=== PATIENT | female | born 1950 | race Caucasian/White ===

== ENCOUNTER 2020-08-06 16:08 | Inpatient (IN) | payer MEDICARE, OTHER ==
[~2020-08-06] VITALS: Ht 154.9 cm; Wt 85.1 kg
--- NOTE | 2020-08-06 17:04 | RAD ---
EXAM: CT Head without IV contrast CLINICAL HISTORY: Altered mental status COMPARISON: None. TECHNIQUE: Routine CT of the head without contrast. PQRS compliance statement - One or more of the following individualized dose reduction techniques were utilized for this study: 1. Automated exposure control 2. Adjustment of the mA and/or kV according to patient size 3. Use of iterative reconstruction technique FINDINGS: There is no evidence of hemorrhage, mass or extra-axial fluid collection. García-white differentiation is maintained with no evidence of edema. Subcortical, periventricular, deep and pontine white matter hypoattenuation likely changes of chronic small vessel disease. There is no mass effect or shift of the intracranial structures. The ventricles, basilar cisterns and cortical sulci are normal in size and configuration for the patients stated age. The cerebellum and brainstem are unremarkable. The calvarium demonstrates no evidence of fracture or focal lesion. Mastoid air cells are clear. Partial opacification of the sphenoid sinuses, likely sinusitis. Otherwise, the visualized paranasal sinuses are clear. The visualized portions of the orbits are normal. Ectatic appearance of the basilar artery, similar in density to the MCA. Atherosclerotic calcifications of the intracranial internal carotid and vertebral arteries is seen. IMPRESSION: 1. No evidence for acute intracranial process 2. White matter changes likely chronic small vessel disease. 3. 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 4. Sphenoid sinus disease. Electronically signed by: Rogerio Rosado MD (08/06/2020 5:02 PM) [facility]LS[facility]
[2020-08-06] MEDS ORDERED: LORazepam 0.5 MG TABLET ONE (17:07)
--- NOTE | 2020-08-06 17:31 | RAD ---
CHEST AP ONLY History: Reason: AMS / Spl. Instructions: / History: Comparison: None. Findings: No consolidation or pleural effusion. Normal heart size. No pneumothorax. Impression: 1. No acute cardiopulmonary process. Electronically signed by: Saul Del Real DO (08/06/2020 5:28 PM) [facility]
--- NOTE | 2020-08-06 17:45 | PHYS DOC ---
Past Medical History Past Medical History: GERD, Hypertension Additional Past Medical Histor: HYPOGLYCEMIA (HERMINIA VIDALES MD) Past Surgical History: Cholecystectomy Additional Past Surgical Histo: COLON RESECTION,LEFT FOOT (HERMINIA VIDALES MD) Smoking Status: Never Smoker Alcohol Use: None (HERMINIA VIDALES MD) General Adult EDM: Chief Complaint: SLURRED SPEECH HPI: HPI: Patient is 70-year-old female who presents to the emergency room after having an episode of transient aphasia. Her states that she started having shaking which she sometimes gets when she has a low glucose. He then states that she became very confused. He states that he asked her what they were doing there and the name of their dogs as well as his name and she was unable to answe r any of this questions. He states that it appeared that she was having a hard time getting her words out. He states that her pupils were constricted and that she was very listless. He states that he was able to get her some food and soda and her mental status slowly improved on their way here to the hospital. He states this is never happened previously. She states she felt normal prior to this episode. She is still feeling shaky but otherwise feels back to normal. (HERMINIA VIDALES MD) Review of Systems: Review of Systems: General: Denies fever, chills, sweats, fatigue Eyes: Denies drainage, blurred vision, eye redness HENT: Denies rhinorrhea, sore throat, earache Respiratory: Denies cough, shortness of breath, wheezing Cardiac: Denies edema, palpitations, chest pain GI: Denies abdominal pain, Nausea, vomiting MSK: Denies back pain, neck pain Skin: Denies rash, jaundice Neuro: Denies headache, dizziness reports aphasia Psychiatric: Denies SI/HI (HERMINIA VIDALES MD) Heart Score: Risk Factors: Risk Factors: DM, Current or recent (<one month) smoker, HTN, HLP, family history of CAD, obesity. Risk Scores: Score 0 - 3: 2.5% MACE over next 6 weeks - Discharge Home Score 4 - 6: 20.3% MACE over next 6 weeks - Admit for Clinical Observation Score 7 - 10: 72.7% MACE over next 6 weeks - Early Invasive Strategies (HERMINIA VIDALES MD) Current Medications: Current Medications Medications (Trade) Dose Ordered Sig/Gretchen Start Time Stop Time Status Last Admin Dose Admin Lorazepam (Ativan) 0.5 mg STK-MED ONCE 08/06/20 17:07 08/06/20 17:07 DC (HERMINIA VIDALES MD) Allergies: Allergies: Allergies Coded Allergies Type Severity Reaction Last Updated Verified No Known Drug Allergies 08/06/20 No (HERMINIA VIDALES MD) Physical Exam: PE: General: Awake, alert, NAD. Well Nourished, well hydrated. Cooperative HEENT: Atraumatic, EOMI, PERRL, airway patent, moist oral mucosa Neck: Supple, trachea midline Respiratory: CTA bilaterally, normal effort, no wheezing/crackles CV: RRR, no murmur, cap refill <2 GI: Soft, nondistended, nontender, no masses MSK: No obvious deformities Skin: Warm, dry, intact Neuro: A&O x3, speech NL, 5/5 strength in BUE/BLE distally and proximally, CN 2- 12 intact, cerebellar testing normal Psych: Normal affect, normal mood, not suicidal or homicidal (HERMINIA VIDALES MD) PE: Constitutional: Well developed, well nourished, no acute distress, non-toxic appearance HENT: Normocephalic, atraumatic Eyes: PERRL, EOMI, conjunctiva normal, no discharge Neck: Normal range of motion, no tenderness, supple Lungs & Thorax: No respiratory distress, equal chest rise and fall Abdomen: Soft, no tenderness Skin: Warm, dry, no erythema, no rash Extremities: No tenderness, ROM intact, no edema Neurologic: Alert and oriented X 3, normal motor function, normal sensory function, no focal deficits noted Psychologic: Affect normal, judgment normal (DIAMOND MARTINEZ DO) Current Patient Data: Labs: Laboratory Tests Test 08/06/20 16:30 Glucose (Fingerstick) 121 mg/dL (70-99) H Vital Signs: Vital Signs Date Time Temp Pulse Resp B/P (MAP) Pulse Ox O2 Delivery O2 Flow Rate FiO2 08/06/20 16:32 97.9 106 20 159/100 (119) 94 Room Air 97.9 (HERMINIA VIDALES MD) EKG: EKG: [] (HERMINIA VIDALES MD) Radiology/Procedures: Radiology/Procedures: [] (HERMINIA VIDALES MD) Radiology/Procedures: PROCEDURE: CT HEAD WO CONTRAST EXAM: CT Head without IV contrast CLINICAL HISTORY: Altered mental status COMPARISON: None. TECHNIQUE: Routine CT of the head without contrast. PQRS compliance statement - One or more of the following individualized dose reduction techniques were utilized for this study: 1. Automated exposure control 2. Adjustment of the mA and/or kV according to patient size 3. Use of iterative reconstruction technique FINDINGS: There is no evidence of hemorrhage, mass or extra-axial fluid collection. García-white differentiation is maintained with no evidence of edema. Subcortical, periventricular, deep and pontine white matter hypoattenuation likely changes of chronic small vessel disease. There is no mass effect or shift of the intracranial structures. The ventricles, basilar cisterns and cortical sulci are normal in size and configuration for the patients stated age. The cerebellum and brainstem are unremarkable. The calvarium demonstrates no evidence of fracture or focal lesion. Mastoid air cells are clear. Partial opacification of the sphenoid sinuses, likely sinusitis. Otherwise, the visualized paranasal sinuses are clear. The visualized portions of the orbits are normal. Ectatic appearance of the basilar artery, similar in density to the MCA. Atherosclerotic calcifications of the intracranial internal carotid and vertebral arteries is seen. IMPRESSION: 1. No evidence for acute intracranial process 2. White matter changes likely chronic small vessel disease. 3. 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 4. Sphenoid sinus disease. Electronically signed by: Rogerio Rosado MD (08/06/2020 5:02 PM) [facility] CHEST AP ONLY History: Reason: AMS / Spl. Instructions: / History: Comparison: None. Findings: No consolidation or pleural effusion. Normal heart size. No pneumothorax. Impression: 1. No acute cardiopulmonary process. Electronically signed by: Saul Del Real DO (08/06/2020 5:28 PM) [facility] (DIAMOND MARTINEZ DO) Course & Med Decision Making: Course & Med Decision Making Pertinent Labs and Imaging studies reviewed. (See chart for details) Patient is a 70-year-old female who presents to the emergency room after having an episode of expressive aphasia. It is possible that this could have been due to hypoglycemia as she is a history of this. This also could be related to a TIA. Work-up will be ordered including CBC, BMP, troponin, EKG, chest x-ray, CT head. (HERMINIA VIDALES MD) Course & Med Decision Making 1800-signout received from Dr. Vidales for patient with concern for possible TIA. NIHSS upon arrival reportedly 0. CT imaging without acute process. Patient pending laboratory data. Labs reviewed. Patient seen and evaluated by myself. NIHSS continues to be 0. Neuroprotective aspirin provided. Blood pressure addressed. Patient requiring admission for further evaluation and treatment. Discussed with Dr. Lemus (hospitalist) who is in agreement with admission. Discussed findings and plan with patient and family, who acknowledge understanding and agreement. (DIAMOND MARTINEZ DO) Dragon Disclaimer: Dragon Disclaimer: This electronic medical record was generated, in whole or in part, using a voice recognition dictation system. (HERMINIA VIDALES MD) Departure Departure Impression: Primary Impression: TIA (transient ischemic attack) Additional Impression: Expressive aphasia Disposition: ADMITTED INPATIENT Admitting Physician: CEDRICK Dyer) (DIAMOND MARTINEZ DO) Condition: STABLE Referrals: UNKNOWN PCP NAME (PCP) Scripts Atorvastatin Calcium (ATORVASTATIN CALCIUM) 40 Mg Tablet 80 MG PO QHS for TIA, #30 TAB 2 Refills Prov: MARILEE RICH MD 08/07/20 Aspirin (ASPIRIN EC) 325 Mg Tablet. 325 MG PO DAILYWBKFT for TIA, #30 TAB.SR 2 Refills Prov: MARILEE RICH MD 08/07/20 Justicifation of Admission Dx: Justifications for Admission: Justification of Admission Dx: N/A (HERMINIA VIDALES MD) Justification of Admission Dx: Yes Comments: TIA (DIAMOND MARTINEZ DO) NIHSS - ED NIH Stroke Scale: NIH Stroke Scale Response (Comments) Value Level of Consciousness: 0 Alert/Responsive 0 LOC Questions: 0 Answers both correctly 0 LOC Commands: 0 Performs both tasks 0 Best Gaze: 0 Normal 0 Visual: 0 No visual loss 0 Facial Palsy: 0 Normal, symmetrical 0 Motor - Left Arm 0 No drift 0 Motor - Right Arm 0 No drift 0 Motor - Left Leg 0 No drift 0 Motor: Right Leg 0 No drift 0 Limb Ataxia: 0 Absent 0 Sensory: 0 No loss 0 Best Language: 0 Normal 0 Dysathria: 0 Normal 0 Extinction and Inattention: 0 Normal 0 Total 0 HERMINIA VIDALES MD Aug 06, 2020 17:45 DIAMOND MARTINEZ DO Aug 06, 2020 21:10
[2020-08-06 17:46] LABS: BASO # 0.1 x10^3/uL (0.0-0.2); BASO % 1 % (0-3); EOS # 0.2 x10^3/uL (0.0-0.7); EOS % 3 % (0-3); HEMATOCRIT 41.8 % (36.0-47.0); HEMOGLOBIN 13.9 g/dL (12.0-15.5); LYMPH # 1.5 x10^3/uL (1.0-4.8); LYMPH % 24 % (24-48); MEAN CORPUSCULAR HEMOGLOBIN 31 pg (25-35); MEAN CORPUSCULAR HGB CONC 33 g/dL (31-37); MEAN CORPUSCULAR VOLUME 93 fL (79-100); MONO # 0.6 x10^3/uL (0.0-1.1); MONO % 10 % (0-9); NEUT # 3.8 x10^3/uL (1.8-7.7); NEUT % 63 % (31-73); PLATELET COUNT 233 x10^3/uL (140-400); RED CELL DISTRIBUTION WIDTH 13.4 % (11.5-14.5); WHITE BLOOD COUNT 6.1 x10^3/uL (4.0-11.0)
[2020-08-06 18:19] LABS: CALCIUM 9.1 mg/dL (8.5-10.1); CREATININE 0.9 mg/dL (0.6-1.0); GFR 61.5; POTASSIUM 4.2 mmol/L (3.5-5.1)
[2020-08-06 18:25] LABS: ALBUMIN 3.7 g/dL (3.4-5.0); C-REACTIVE PROTEIN 1.3 mg/L (0-3.3); TOTAL BILIRUBIN 0.3 mg/dL (0.2-1.0); TOTAL PROTEIN 7.3 g/dL (6.4-8.2)
[2020-08-06] MEDS ORDERED: ASPIRIN 325 MG TABLET PO ONE (19:45)
[2020-08-06] MEDS ORDERED: LABETALOL 20 MG/4 ML DISP.SYRIN. IVP ONE (19:45)
[2020-08-06] MEDS ORDERED: ONDANSETRON PF 4 MG/2 ML VIAL. IV PRN ×2 (21:15→21:45)
[2020-08-06] MEDS ORDERED: ACETAMINOPHEN 325 MG TABLET. PO PRN (21:15)
[2020-08-06] MEDS ORDERED: LABETALOL 20 MG/4 ML DISP.SYRIN. IVP PRN (21:45)
[2020-08-06] MEDS ORDERED: ASPIRIN RECTAL 300 MG SUPP. PR PRN (21:45)
[2020-08-06] MEDS ORDERED: DOCUSATE SODIUM 100 MG CAPSULE. PO PRN (21:45)
[2020-08-06] MEDS ORDERED: BISACODYL 10 MG SUPP.RECT. PR PRN (21:45)
[2020-08-06] MEDS ORDERED: ACETAMINOPHEN 650 MG SUPP.RECT. PR PRN (21:45)
[2020-08-06] MEDS: HEPARIN for SUB-Q USE 5,000 UNIT/ML VIAL. SQ SCH (21:49)
[2020-08-06] MEDS ORDERED: ATORVASTATIN CALCIUM 40 MG TABLET. PO SCH (22:00)
[2020-08-06] MEDS ORDERED: FAMOTIDINE 20 MG TABLET. PO SCH (22:00)
[2020-08-06 23:30] VITALS: BP 124/86
[2020-08-07] MEDS ORDERED: LISI-334 PO (00:05)
[2020-08-07] MEDS ORDERED: MELO15TA23 PO (00:05)
[2020-08-07] MEDS ORDERED: CARB1TAB20 PO (00:05)
[2020-08-07] MEDS ORDERED: ESOM20CA PO (00:05)
[2020-08-07 03:00] VITALS: BP 111/82
--- NOTE | 2020-08-07 04:15 | EKG ---
[facility] [address] [place] [address] Test Date: 2020-08-06 Test Time: 16:21:37 Pat Name: DANNA GATICA Department: Room: Gender: F Cycle Analyst: : 1950 Requested By: HERMINIA VIDALES Order Number: [id number] Reading MD: Measurements Intervals [place] Rate: 108 P: 4 NH: 152 QRS: 4 QRSD: 80 T: 0 QT: 340 QTc: 459 Interpretive Statements SINUS TACHYCARDIA LEFT ATRIAL ABNORMALITY QRS(T) CONTOUR ABNORMALITY CONSISTENT WITH INFERIOR INFARCT AGE UNDETERMINED ABNORMAL ECG RI6.02 No previous ECG available for comparison
[2020-08-07 05:36] LABS: CALCIUM 8.6 mg/dL (8.5-10.1); CREATININE 0.7 mg/dL (0.6-1.0); GFR 82.3
[2020-08-07 05:46] LABS: CHOLESTEROL/HDL RATIO 3.6
[2020-08-07 07:00] VITALS: BP 119/83
[2020-08-07] MEDS: HEPARIN for SUB-Q USE 5,000 UNIT/ML VIAL. SQ SCH ×2 (07:29→14:15)
--- NOTE | 2020-08-07 07:39 | PDOC1 ---
History and Physical Date of Admission Date of Admission DATE: 08/07/20 TIME: 07:32 Identification/Chief Complaint Chief Complaint TIA Source Source: Patient History of Present Illness History of Present Illness Patient is a 70-year-old female with past medical history of hypertension who presents to the ER for evaluation of transient aphasia that began yesterday. Patient said her symptoms lasted only a couple hours and began to resolve in route to the emergency department. She has associated confusion and hand shaking that she associates to her history of hypoglycemia. Patient denies any history of TIA or heart disease. She denies any chest pain, numbness, tingling, shortness of breath, or nausea. Past Medical History Past Medical History Hypertension, GERD, restless leg syndrome Past Surgical History Past Surgical History Cholecystectomy Family History Family History: Coronary Artery Disease Social History Smoke: No ALCOHOL: none Drugs: None Current Problem List Problem List Problems Medical Problems: (1) Expressive aphasia Status: Acute Current Medications Current Medications Current Medications Lorazepam (Ativan) 0.5 mg STK-MED ONCE .ROUTE ; Start 08/06/20 at 17:07; Stop 08/06/20 at 17:07; Status DC Aspirin (Khang Aspirin) 325 mg 1X ONCE PO Last administered on 08/06/20at 20:05; Start 08/06/20 at 19:45; Stop 08/06/20 at 19:47; Status DC Labetalol HCl (Normodyne Iv Push) 10 mg 1X ONCE IVP Last administered on 08/06/20at 20:05; Start 08/06/20 at 19:45; Stop 08/06/20 at 19:47; Status DC Ondansetron HCl (Zofran) 4 mg PRN Q8HRS PRN IV NAUSEA/VOMITING 1ST CHOICE; Start 08/06/20 at 21:15; Stop 08/06/20 at 21:37; Status DC Acetaminophen (Tylenol) 650 mg PRN Q4HRS PRN PO FEVER > 100.3'F; Start 08/06/20 at 21:15 Ondansetron HCl (Zofran) 4 mg PRN Q4HRS PRN IV NAUSEA/VOMITING 1ST CHOICE; Start 08/06/20 at 21:45 Heparin Sodium (Porcine) (Heparin Sodium) 5,000 unit Q8HRS SQ Last administered on 08/07/20at 07:29; Start 08/06/20 at 22:00 Labetalol HCl (Normodyne Iv Push) 10 mg PRN Q2HRS PRN IVP HYPERTENSION; Start 08/06/20 at 21:45 Atorvastatin Calcium (Lipitor) 80 mg QHS PO Last administered on 08/06/20at 21:47; Start 08/06/20 at 22:00 Acetaminophen (Tylenol Supp) 650 mg PRN Q4HRS PRN IA TEMP > 100.4F; Start 08/06/20 at 21:45 Docusate Sodium (Colace) 100 mg PRN DAILY PRN PO HARD STOOLS; Start 08/06/20 at 21:45 Bisacodyl (Dulcolax Supp) 10 mg PRN DAILY PRN IA CONSTIPATION; Start 08/06/20 at 21:45 Famotidine (Pepcid) 20 mg QHS PO Last administered on 08/06/20at 21:47; Start 08/06/20 at 22:00 Aspirin (Ecotrin) 325 mg DAILYWBKFT PO ; Start 08/07/20 at 08:00 Aspirin (Aspirin Rectal Supp) 300 mg PRN DAILY PRN IA IF UNABLE TO TAKE PO; Start 08/06/20 at 21:45 Active Scripts Active Reported Carbidopa-Levodopa 10-100 Tab (Carbidopa/Levodopa) 1 Each Tablet 1 Each PO HS Lisinopril 20 Mg Tablet 1 Tab PO DAILY Meloxicam 15 Mg Tablet 1 Tab PO DAILY 30 Days Nexium Capsule (Esomeprazole Magnesium) 20 Mg Capsule. 1 Cap PO DAILY Allergies Allergies: Coded Allergies: No Known Drug Allergies (Unverified , 08/06/20) ROS Review of System GENERAL: No history of weight change, weakness or fevers. SKIN: No bruising, hair changes or rashes. EYES: No blurred, double or loss of vision. NOSE AND THROAT: No history of nosebleeds, hoarseness or sore throat. HEART: Denies chest pain, denies palpitations. LUNGS: Denies cough, hemoptysis, wheezing or shortness of breath. GASTROINTESTINAL: Denies nausea, vomiting, abdominal pain. GENITOURINARY: Denies dysuria, frequency, urgency, hematuria. NEUROLOGIC: Aphasia. Denies history of numbness, tingling, or weakness. PSYCHIATRIC: Denies anxiety, denies depression. ENDOCRINE: No history of heat or cold intolerance, polyuria or polydipsia. EXTREMITIES: Denies muscle weakness, joint pain, pain on walking or stiffness. Physical Exam Physical Exam General: Alert, Oriented X3, Cooperative, No acute distress HEENT: PERRLA, EOMI Lungs: Clear to auscultation, Normal air movement Heart: RRR, no murmurs Cardiovascular: S1, S2 Abdomen: Normal bowel sounds, Soft, No tenderness Extremities: No clubbing, No cyanosis Skin: No rashes, No significant lesion Neuro: Normal speech, Normal tone, Sensation intact Psych/Mental Status: Mental status NL, Mood NL Vitals Vitals Vital Signs Date Time Temp Pulse Resp B/P (MAP) Pulse Ox O2 Delivery O2 Flow Rate FiO2 08/07/20 07:00 97.9 88 17 119/83 (95) 93 Room Air 97.9 Labs Labs Laboratory Tests Test 08/06/20 16:30 08/06/20 17:20 08/07/20 00:24 08/07/20 04:40 Glucose (Fingerstick) 121 mg/dL (70-99) White Blood Count 6.1 x10^3/uL (4.0-11.0) Red Blood Count 4.50 x10^6/uL (3.50-5.40) Hemoglobin 13.9 g/dL (12.0-15.5) Hematocrit 41.8 % (36.0-47.0) Mean Corpuscular Volume 93 fL (79-100) Mean Corpuscular Hemoglobin 31 pg (25-35) Mean Corpuscular Hemoglobin Concent 33 g/dL (31-37) Red Cell Distribution Width 13.4 % (11.5-14.5) Platelet Count 233 x10^3/uL (140-400) Neutrophils (%) (Auto) 63 % (31-73) Lymphocytes (%) (Auto) 24 % (24-48) Monocytes (%) (Auto) 10 % (0-9) Eosinophils (%) (Auto) 3 % (0-3) Basophils (%) (Auto) 1 % (0-3) Neutrophils # (Auto) 3.8 x10^3/uL (1.8-7.7) Lymphocytes # (Auto) 1.5 x10^3/uL (1.0-4.8) Monocytes # (Auto) 0.6 x10^3/uL (0.0-1.1) Eosinophils # (Auto) 0.2 x10^3/uL (0.0-0.7) Basophils # (Auto) 0.1 x10^3/uL (0.0-0.2) Sodium Level 137 mmol/L (136-145) 138 mmol/L (136-145) Potassium Level 4.2 mmol/L (3.5-5.1) 4.0 mmol/L (3.5-5.1) Chloride Level 103 mmol/L (98-107) 105 mmol/L (98-107) Carbon Dioxide Level 29 mmol/L (21-32) 26 mmol/L (21-32) Anion Gap 5 (6-14) 7 (6-14) Blood Urea Nitrogen 19 mg/dL (7-20) 19 mg/dL (7-20) Creatinine 0.9 mg/dL (0.6-1.0) 0.7 mg/dL (0.6-1.0) Estimated GFR (Cockcroft-Gault) 61.5 82.3 BUN/Creatinine Ratio 21 (6-20) Glucose Level 97 mg/dL (70-99) 105 mg/dL (70-99) Calcium Level 9.1 mg/dL (8.5-10.1) 8.6 mg/dL (8.5-10.1) Total Bilirubin 0.3 mg/dL (0.2-1.0) Aspartate Amino Transf (AST/SGOT) 17 U/L (15-37) Alanine Aminotransferase (ALT/SGPT) 22 U/L (14-59) Alkaline Phosphatase 84 U/L (46-116) Troponin I Quantitative < 0.017 ng/mL (0.000-0.055) < 0.017 ng/mL (0.000-0.055) C-Reactive Protein, Quantitative 1.3 mg/L (0-3.3) Total Protein 7.3 g/dL (6.4-8.2) Albumin 3.7 g/dL (3.4-5.0) Albumin/Globulin Ratio 1.0 (1.0-1.7) Vitamin B12 Level 271 pg/mL (247-911) Thyroid Stimulating Hormone (TSH) 0.011 uIU/mL (0.358-3.74) Test 08/07/20 05:00 Triglycerides Level 147 mg/dL (0-150) Cholesterol Level 161 mg/dL (0-200) LDL Cholesterol, Calculated 87 mg/dL (0-100) VLDL Cholesterol, Calculated 29 mg/dL (0-40) Non-HDL Cholesterol Calculated 116 mg/dL (0-129) HDL Cholesterol 45 mg/dL (40-60) Cholesterol/HDL Ratio 3.6 Laboratory Tests Test 08/06/20 16:30 08/06/20 17:20 08/07/20 00:24 08/07/20 04:40 Glucose (Fingerstick) 121 mg/dL (70-99) White Blood Count 6.1 x10^3/uL (4.0-11.0) Red Blood Count 4.50 x10^6/uL (3.50-5.40) Hemoglobin 13.9 g/dL (12.0-15.5) Hematocrit 41.8 % (36.0-47.0) Mean Corpuscular Volume 93 fL (79-100) Mean Corpuscular Hemoglobin 31 pg (25-35) Mean Corpuscular Hemoglobin Concent 33 g/dL (31-37) Red Cell Distribution Width 13.4 % (11.5-14.5) Platelet Count 233 x10^3/uL (140-400) Neutrophils (%) (Auto) 63 % (31-73) Lymphocytes (%) (Auto) 24 % (24-48) Monocytes (%) (Auto) 10 % (0-9) Eosinophils (%) (Auto) 3 % (0-3) Basophils (%) (Auto) 1 % (0-3) Neutrophils # (Auto) 3.8 x10^3/uL (1.8-7.7) Lymphocytes # (Auto) 1.5 x10^3/uL (1.0-4.8) Monocytes # (Auto) 0.6 x10^3/uL (0.0-1.1) Eosinophils # (Auto) 0.2 x10^3/uL (0.0-0.7) Basophils # (Auto) 0.1 x10^3/uL (0.0-0.2) Sodium Level 137 mmol/L (136-145) 138 mmol/L (136-145) Potassium Level 4.2 mmol/L (3.5-5.1) 4.0 mmol/L (3.5-5.1) Chloride Level 103 mmol/L (98-107) 105 mmol/L (98-107) Carbon Dioxide Level 29 mmol/L (21-32) 26 mmol/L (21-32) Anion Gap 5 (6-14) 7 (6-14) Blood Urea Nitrogen 19 mg/dL (7-20) 19 mg/dL (7-20) Creatinine 0.9 mg/dL (0.6-1.0) 0.7 mg/dL (0.6-1.0) Estimated GFR (Cockcroft-Gault) 61.5 82.3 BUN/Creatinine Ratio 21 (6-20) Glucose Level 97 mg/dL (70-99) 105 mg/dL (70-99) Calcium Level 9.1 mg/dL (8.5-10.1) 8.6 mg/dL (8.5-10.1) Total Bilirubin 0.3 mg/dL (0.2-1.0) Aspartate Amino Transf (AST/SGOT) 17 U/L (15-37) Alanine Aminotransferase (ALT/SGPT) 22 U/L (14-59) Alkaline Phosphatase 84 U/L (46-116) Troponin I Quantitative < 0.017 ng/mL (0.000-0.055) < 0.017 ng/mL (0.000-0.055) C-Reactive Protein, Quantitative 1.3 mg/L (0-3.3) Total Protein 7.3 g/dL (6.4-8.2) Albumin 3.7 g/dL (3.4-5.0) Albumin/Globulin Ratio 1.0 (1.0-1.7) Vitamin B12 Level 271 pg/mL (247-911) Thyroid Stimulating Hormone (TSH) 0.011 uIU/mL (0.358-3.74) Test 08/07/20 05:00 Triglycerides Level 147 mg/dL (0-150) Cholesterol Level 161 mg/dL (0-200) LDL Cholesterol, Calculated 87 mg/dL (0-100) VLDL Cholesterol, Calculated 29 mg/dL (0-40) Non-HDL Cholesterol Calculated 116 mg/dL (0-129) HDL Cholesterol 45 mg/dL (40-60) Cholesterol/HDL Ratio 3.6 Images Images EXAM: CT Head without IV contrast CLINICAL HISTORY: Altered mental status COMPARISON: None. TECHNIQUE: Routine CT of the head without contrast. PQRS compliance statement - One or more of the following individualized dose reduction techniques were utilized for this study: 1. Automated exposure control 2. Adjustment of the mA and/or kV according to patient size 3. Use of iterative reconstruction technique FINDINGS: There is no evidence of hemorrhage, mass or extra-axial fluid collection. García-white differentiation is maintained with no evidence of edema. Subcortical, periventricular, deep and pontine white matter hypoattenuation likely changes of chronic small vessel disease. There is no mass effect or shift of the intracranial structures. The ventricles, basilar cisterns and cortical sulci are normal in size and configuration for the patients stated age. The cerebellum and brainstem are unremarkable. The calvarium demonstrates no evidence of fracture or focal lesion. Mastoid air cells are clear. Partial opacification of the sphenoid sinuses, likely sinusitis. Otherwise, the visualized paranasal sinuses are clear. The visualized portions of the orbits are normal. Ectatic appearance of the basilar artery, similar in density to the MCA. Atherosclerotic calcifications of the intracranial internal carotid and vertebral arteries is seen. IMPRESSION: 1. No evidence for acute intracranial process 2. White matter changes likely chronic small vessel disease. 3. 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 4. Sphenoid sinus disease. VTE Prophylaxis Ordered VTE Prophylaxis Devices: Yes VTE Pharmacological Prophylaxi: No Assessment/Plan Assessment/Plan TIA Expressive aphasia Subclinical hypothyroid Plan: Patient symptoms have resolved at the time of evaluation. She denies any weakness, numbness, difficulty speaking, or facial droop. She feels comfortable discharge today with outpatient follow-up if possible. Recommend repeat TSH in 6 to 8 weeks. Consult to neurology High intensity statin PT/OT VTE prophylaxis N.p.o. until bedside swallow eval then cardiac diet Full code, patient names her is her DPOA Justifications for Admission Other Justification MARILEE RICH MD Aug 07, 2020 07:39
[2020-08-07] MEDS ORDERED: ASPIRIN ENTERIC COATED 325 MG TABLET.DR. PO SCH (08:00)
[2020-08-07] MEDS ORDERED: LISINOPRIL 20 MG TABLET PO SCH (09:00)
[2020-08-07 10:47] VITALS: BP 120/93
--- NOTE | 2020-08-07 11:44 | PDOC2 ---
NEUROLOGY CONSULT Date of Service DOS: DATE: 08/07/20 TIME: 11:38 Reason for Consult Reason for Consult: Transient ischemic attack Referring Physician Referring Physician: Dr. Young Source Source: Caregiver (), Chart review, Patient History of Present Illness History of Present Illness The patient is a 70-year-old right-handed female who was at the emergency veterinary clinic with her and dog. She had at least one half-hour of expressive aphasia. She feels fine now. There is no prior episodes of stroke, seizure, head injury, or migraine headache. Past Medical History Cardiovascular: HTN CENTRAL NERVOUS SYSTEM: Other ( restless leg syndrome) GI: GERD Psych: Depression Rheumatologic: Rheumatoid arthritis Past Surgical History Past Surgical History: Appendectomy, Cholecystectomy, Cataract Removal, Hernia Repair ( abdominal, mesh), Tonsillectomy, Other ( bilateral foot fractures) Social History Social History , retired, no alcohol or tobacco Current Medications Current Medications Current Medications Lorazepam (Ativan) 0.5 mg STK-MED ONCE .ROUTE ; Start 08/06/20 at 17:07; Stop 08/06/20 at 17:07; Status DC Aspirin (Khang Aspirin) 325 mg 1X ONCE PO Last administered on 08/06/20at 20:05; Start 08/06/20 at 19:45; Stop 08/06/20 at 19:47; Status DC Labetalol HCl (Normodyne Iv Push) 10 mg 1X ONCE IVP Last administered on 08/06/20at 20:05; Start 08/06/20 at 19:45; Stop 08/06/20 at 19:47; Status DC Ondansetron HCl (Zofran) 4 mg PRN Q8HRS PRN IV NAUSEA/VOMITING 1ST CHOICE; Start 08/06/20 at 21:15; Stop 08/06/20 at 21:37; Status DC Acetaminophen (Tylenol) 650 mg PRN Q4HRS PRN PO FEVER > 100.3'F; Start 08/06/20 at 21:15 Ondansetron HCl (Zofran) 4 mg PRN Q4HRS PRN IV NAUSEA/VOMITING 1ST CHOICE; Start 08/06/20 at 21:45 Heparin Sodium (Porcine) (Heparin Sodium) 5,000 unit Q8HRS SQ Last administered on 08/07/20at 07:29; Start 08/06/20 at 22:00 Labetalol HCl (Normodyne Iv Push) 10 mg PRN Q2HRS PRN IVP HYPERTENSION; Start 08/06/20 at 21:45 Atorvastatin Calcium (Lipitor) 80 mg QHS PO Last administered on 08/06/20at 21:47; Start 08/06/20 at 22:00 Acetaminophen (Tylenol Supp) 650 mg PRN Q4HRS PRN SC TEMP > 100.4F; Start 08/06/20 at 21:45 Docusate Sodium (Colace) 100 mg PRN DAILY PRN PO HARD STOOLS; Start 08/06/20 at 21:45 Bisacodyl (Dulcolax Supp) 10 mg PRN DAILY PRN SC CONSTIPATION; Start 08/06/20 at 21:45 Famotidine (Pepcid) 20 mg QHS PO Last administered on 08/06/20at 21:47; Start 08/06/20 at 22:00 Aspirin (Ecotrin) 325 mg DAILYWBKFT PO Last administered on 08/07/20at 10:23; Start 08/07/20 at 08:00 Aspirin (Aspirin Rectal Supp) 300 mg PRN DAILY PRN SC IF UNABLE TO TAKE PO; Start 08/06/20 at 21:45 Lisinopril (Prinivil) 20 mg DAILY PO Last administered on 08/07/20at 10:24; Start 08/07/20 at 09:00 Active Scripts Active Reported Carbidopa-Levodopa 10-100 Tab (Carbidopa/Levodopa) 1 Each Tablet 1 Each PO HS Lisinopril 20 Mg Tablet 1 Tab PO DAILY Meloxicam 15 Mg Tablet 1 Tab PO DAILY 30 Days Nexium Capsule (Esomeprazole Magnesium) 20 Mg Capsule. 1 Cap PO DAILY Allergies Allergies: Coded Allergies: No Known Drug Allergies (Unverified , 08/06/20) ROS Review of System Negative for fever, chills, weight loss, shortness of breath, chest pain, indigestion, hematochezia, melena, and dysuria. Full 14-point review of systems is negative. Physical Exam Physical Examination General: Well-developed, well-nourished white female in no acute distress HEENT: Normocephalic andatraumatic. Temporal arteriespulsatile and nontender. Neck: Supple without bruit, no meningismus Musculoskeletal: Stability:see neurologic. Gait exam:see neurologic. Tone:see neurologic.Strength:see neurologic. Neurological: Mental Status:intact, orientation, memory, attention span/concentration, language, fund of knowledge normal. Cranial Nerves:Pupils equal and reactive to light, extraocular movements areintact, visual orozco are full to confrontation. Facial sensation is normal. There is no facial asymmetry. Vestibulo-ocular reflex is intact. Palate elevates and tongue protrudes in m idline. All other cranial related problems are negative except as mentioned before.Reflexes:2+ and symmetric with flexor plantar responses. Motor:5/5 strength with normal tone and bulk. Coordination:Finger-nose finger and zqhh-dg-ppyp testing are normal. Rapid alternating movements and fine finger movements are intact. Gait:Normal, including tandem. Sensory:Normal pinprick, vibration, light touch, proprioception. Vitals VITALS Vital Signs Date Time Temp Pulse Resp B/P (MAP) Pulse Ox O2 Delivery O2 Flow Rate FiO2 08/07/20 10:47 97.9 83 17 120/93 (102) 93 Room Air 97.9 Labs Labs Laboratory Tests Test 08/06/20 16:30 08/06/20 17:20 08/07/20 00:24 08/07/20 04:40 Glucose (Fingerstick) 121 mg/dL (70-99) White Blood Count 6.1 x10^3/uL (4.0-11.0) Red Blood Count 4.50 x10^6/uL (3.50-5.40) Hemoglobin 13.9 g/dL (12.0-15.5) Hematocrit 41.8 % (36.0-47.0) Mean Corpuscular Volume 93 fL (79-100) Mean Corpuscular Hemoglobin 31 pg (25-35) Mean Corpuscular Hemoglobin Concent 33 g/dL (31-37) Red Cell Distribution Width 13.4 % (11.5-14.5) Platelet Count 233 x10^3/uL (140-400) Neutrophils (%) (Auto) 63 % (31-73) Lymphocytes (%) (Auto) 24 % (24-48) Monocytes (%) (Auto) 10 % (0-9) Eosinophils (%) (Auto) 3 % (0-3) Basophils (%) (Auto) 1 % (0-3) Neutrophils # (Auto) 3.8 x10^3/uL (1.8-7.7) Lymphocytes # (Auto) 1.5 x10^3/uL (1.0-4.8) Monocytes # (Auto) 0.6 x10^3/uL (0.0-1.1) Eosinophils # (Auto) 0.2 x10^3/uL (0.0-0.7) Basophils # (Auto) 0.1 x10^3/uL (0.0-0.2) Sodium Level 137 mmol/L (136-145) 138 mmol/L (136-145) Potassium Level 4.2 mmol/L (3.5-5.1) 4.0 mmol/L (3.5-5.1) Chloride Level 103 mmol/L (98-107) 105 mmol/L (98-107) Carbon Dioxide Level 29 mmol/L (21-32) 26 mmol/L (21-32) Anion Gap 5 (6-14) 7 (6-14) Blood Urea Nitrogen 19 mg/dL (7-20) 19 mg/dL (7-20) Creatinine 0.9 mg/dL (0.6-1.0) 0.7 mg/dL (0.6-1.0) Estimated GFR (Cockcroft-Gault) 61.5 82.3 BUN/Creatinine Ratio 21 (6-20) Glucose Level 97 mg/dL (70-99) 105 mg/dL (70-99) Calcium Level 9.1 mg/dL (8.5-10.1) 8.6 mg/dL (8.5-10.1) Total Bilirubin 0.3 mg/dL (0.2-1.0) Aspartate Amino Transf (AST/SGOT) 17 U/L (15-37) Alanine Aminotransferase (ALT/SGPT) 22 U/L (14-59) Alkaline Phosphatase 84 U/L (46-116) Troponin I Quantitative < 0.017 ng/mL (0.000-0.055) < 0.017 ng/mL (0.000-0.055) C-Reactive Protein, Quantitative 1.3 mg/L (0-3.3) Total Protein 7.3 g/dL (6.4-8.2) Albumin 3.7 g/dL (3.4-5.0) Albumin/Globulin Ratio 1.0 (1.0-1.7) Vitamin B12 Level 271 pg/mL (247-911) Thyroid Stimulating Hormone (TSH) 0.011 uIU/mL (0.358-3.74) Test 08/07/20 05:00 Triglycerides Level 147 mg/dL (0-150) Cholesterol Level 161 mg/dL (0-200) LDL Cholesterol, Calculated 87 mg/dL (0-100) VLDL Cholesterol, Calculated 29 mg/dL (0-40) Non-HDL Cholesterol Calculated 116 mg/dL (0-129) HDL Cholesterol 45 mg/dL (40-60) Cholesterol/HDL Ratio 3.6 Laboratory Tests Test 08/06/20 16:30 08/06/20 17:20 08/07/20 00:24 08/07/20 04:40 Glucose (Fingerstick) 121 mg/dL (70-99) White Blood Count 6.1 x10^3/uL (4.0-11.0) Red Blood Count 4.50 x10^6/uL (3.50-5.40) Hemoglobin 13.9 g/dL (12.0-15.5) Hematocrit 41.8 % (36.0-47.0) Mean Corpuscular Volume 93 fL (79-100) Mean Corpuscular Hemoglobin 31 pg (25-35) Mean Corpuscular Hemoglobin Concent 33 g/dL (31-37) Red Cell Distribution Width 13.4 % (11.5-14.5) Platelet Count 233 x10^3/uL (140-400) Neutrophils (%) (Auto) 63 % (31-73) Lymphocytes (%) (Auto) 24 % (24-48) Monocytes (%) (Auto) 10 % (0-9) Eosinophils (%) (Auto) 3 % (0-3) Basophils (%) (Auto) 1 % (0-3) Neutrophils # (Auto) 3.8 x10^3/uL (1.8-7.7) Lymphocytes # (Auto) 1.5 x10^3/uL (1.0-4.8) Monocytes # (Auto) 0.6 x10^3/uL (0.0-1.1) Eosinophils # (Auto) 0.2 x10^3/uL (0.0-0.7) Basophils # (Auto) 0.1 x10^3/uL (0.0-0.2) Sodium Level 137 mmol/L (136-145) 138 mmol/L (136-145) Potassium Level 4.2 mmol/L (3.5-5.1) 4.0 mmol/L (3.5-5.1) Chloride Level 103 mmol/L (98-107) 105 mmol/L (98-107) Carbon Dioxide Level 29 mmol/L (21-32) 26 mmol/L (21-32) Anion Gap 5 (6-14) 7 (6-14) Blood Urea Nitrogen 19 mg/dL (7-20) 19 mg/dL (7-20) Creatinine 0.9 mg/dL (0.6-1.0) 0.7 mg/dL (0.6-1.0) Estimated GFR (Cockcroft-Gault) 61.5 82.3 BUN/Creatinine Ratio 21 (6-20) Glucose Level 97 mg/dL (70-99) 105 mg/dL (70-99) Calcium Level 9.1 mg/dL (8.5-10.1) 8.6 mg/dL (8.5-10.1) Total Bilirubin 0.3 mg/dL (0.2-1.0) Aspartate Amino Transf (AST/SGOT) 17 U/L (15-37) Alanine Aminotransferase (ALT/SGPT) 22 U/L (14-59) Alkaline Phosphatase 84 U/L (46-116) Troponin I Quantitative < 0.017 ng/mL (0.000-0.055) < 0.017 ng/mL (0.000-0.055) C-Reactive Protein, Quantitative 1.3 mg/L (0-3.3) Total Protein 7.3 g/dL (6.4-8.2) Albumin 3.7 g/dL (3.4-5.0) Albumin/Globulin Ratio 1.0 (1.0-1.7) Vitamin B12 Level 271 pg/mL (247-911) Thyroid Stimulating Hormone (TSH) 0.011 uIU/mL (0.358-3.74) Test 08/07/20 05:00 Triglycerides Level 147 mg/dL (0-150) Cholesterol Level 161 mg/dL (0-200) LDL Cholesterol, Calculated 87 mg/dL (0-100) VLDL Cholesterol, Calculated 29 mg/dL (0-40) Non-HDL Cholesterol Calculated 116 mg/dL (0-129) HDL Cholesterol 45 mg/dL (40-60) Cholesterol/HDL Ratio 3.[address] Head without IV contrast CLINICAL HISTORY: Altered mental status COMPARISON: None. TECHNIQUE: Routine CT of the head without contrast. PQRS compliance statement - One or more of the following individualized dose reduction techniques were utilized for this study: 1. Automated exposure control 2. Adjustment of the mA and/or kV according to patient size 3. Use of iterative reconstruction technique FINDINGS: There is no evidence of hemorrhage, mass or extra-axial fluid collection. García-white differentiation is maintained with no evidence of edema. Subcortical, periventricular, deep and pontine white matter hypoattenuation likely changes of chronic small vessel disease. There is no mass effect or shift of the intracranial structures. The ventricles, basilar cisterns and cortical sulci are normal in size and configuration for the patients stated age. The cerebellum and brainstem are unremarkable. The calvarium demonstrates no evidence of fracture or focal lesion. Mastoid air cells are clear. Partial opacification of the sphenoid sinuses, likely sinusitis. Otherwise, the visualized paranasal sinuses are clear. The visualized portions of the orbits are normal. Ectatic appearance of the basilar artery, similar in density to the MCA. Atherosclerotic calcifications of the intracranial internal carotid and vertebral arteries is seen. IMPRESSION: 1. No evidence for acute intracranial process 2. White matter changes likely chronic small vessel disease. 3. 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 4. Sphenoid sinus disease. Assessment/Plan Assessment/Plan Impression: Transient ischemic attack, expressive aphasia, also consider conversion reaction from stress about her dog's illness. Recommendations: MRI of the brain Carotid Doppler studies Echocardiogram Aspirin Statin Rehabilitation screening Aim for discharge later today. Fully discussed with patient and . Thank you for letting me help secure. JUANCARLOS CABALLERO MD Aug 07, 2020 11:44
--- NOTE | 2020-08-07 12:28 | RAD ---
DOPPLER CAROTID BILAT History: Reason: TIA, aphasia / Spl. Instructions: / History: Multiple grayscale, color, and duplex spectral analysis waveform sonographic images were acquired of the carotid, subclavian, and vertebral arteries. Comparison: None Findings: RIGHT SIDE: Peak systolic flow velocity of the distal CCA is 69 cm/sec. Peak systolic flow velocity of the ICA is 62 cm/sec. The ICA/CCA ratio is 0.9. Peak end diastolic flow velocity of the ICA is 16 cm/sec. The peak systolic velocity of the ECA is 42 cm/sec. No significant plaque formation is identified. LEFT SIDE: Peak systolic flow velocity of the distal CCA is 86 cm/sec. Peak systolic flow velocity of the ICA is 78 cm/sec. The ICA/CCA ratio is 0.9. Peak end diastolic flow velocity of the ICA is 29 cm/sec. Peak systolic flow velocity of the ECA is 53 cm/sec. No significant plaque formation is identified. Vertebral arteries: Bilateral vertebral arteries demonstrate antegrade flow. Impression: There is no evidence of a hemodynamically significant stenosis. PQRS Compliance Statement - Stenosis calculations for carotid ultrasound studies are derived from validated velocity criteria which are known to correlate with the NASCET methodology. Electronically signed by: Homero Kiran MD (08/07/2020 12:25 PM) [id number]
--- NOTE | 2020-08-07 13:11 | CARD ---
MR#: [id number] Date of Study: 08/07/2020 Ordering Physician: JUANCARLOS CABALLERO, Referring Physician: JUANCARLOS CABALLERO, Tech: Liz Lundy RDCS APPROVED REPORT EXAM: Two-dimensional and M-mode echocardiogram with Doppler and color Doppler. Other Information Quality : Good INDICATION CVA/TIA Echo Enhancing Agent Agent/Amount Used: Agitated Saline 8mL 2D DIMENSIONS RVDd2.7 (2.9-3.5cm)Left Atrium(2D)4.0 (1.6-4.0cm) IVSd1.1 (0.7-1.1cm)Aortic Root(2D)3.5 (2.0-3.7cm) LVDd4.1 (3.9-5.9cm)LVOT Diameter2.1 (1.8-2.4cm) PWd0.9 (0.7-1.1cm)LVDs2.6 (2.5-4.0cm) FS (%) 37.6 %SV50.5 ml LVEF(%)60.0 (>50%) Aortic Valve AoV Peak Miles.116.6cm/sAoV VTI17.5cm AO Peak GR.5.4mmHgLVOT Peak Miles.79.2cm/s AO Mean GR.3mmHgAVA (VMAX)2.32cm2 LUI (VTI)2.80cm2 Mitral Valve MV E Glechoic79.3cm/sMV DECEL LGCE536rd MV A Euqhksxu991.5cm/sE/A Ratio0.5 Tricuspid Valve TR P. Nlnpiwiw215ov/sRAP VIGVJJWB5stAv TR Peak Gr.96waJlZHBE87wyLt Pulmonary Vein S1 Ccfbxlao42.7cm/sD2 Kkdtpmpi05.2cm/s LEFT VENTRICLE The left ventricle is normal size. There is normal left ventricular wall thickness. The left ventricu lar systolic function is normal. The Ejection Fraction is 55-60%. There is normal LV segmental wall m otion. Transmitral Doppler flow pattern is Grade I-abnormal relaxation pattern. RIGHT VENTRICLE The right ventricle is normal size. The right ventricular systolic function is normal. ATRIA The left atrium is mildly dilated. The right atrium is mildly dilated. The interatrial septum is inta ct with no evidence for an atrial septal defect or patent foramen ovale as noted on 2-D or Doppler im aging. Injection of bubbles documented no interatrial shunt. AORTIC VALVE The aortic valve is calcified but opens well. Doppler and Color Flow revealed no significant aortic r egurgitation. There is no significant aortic valvular stenosis. MITRAL VALVE The mitral valve is normal in structure and function. There is no evidence of mitral valve prolapse. There is no mitral valve stenosis. Doppler and Color Flow revealed no mitral valve regurgitation note d. TRICUSPID VALVE The tricuspid valve is normal in structure and function. Doppler and Color Flow revealed trace to mil d tricuspid regurgitation. The PA pressure was estimated at 29 mmHg. There is no tricuspid valve sten osis. PULMONIC VALVE The pulmonic valve is not well visualized. Doppler and Color Flow revealed trace pulmonic valvular re gurgitation. There is no pulmonic valvular stenosis. GREAT VESSELS The aortic root is mildly enlarged. The ascending aorta is moderately dilated at 4.4 cm. The IVC is n ormal in size and collapses >50% with inspiration. PERICARDIAL EFFUSION There is no evidence of significant pericardial effusion. Critical Notification Critical Value: No <Conclusion> The left ventricular systolic function is normal. The Ejection Fraction is 55-60%. There is normal LV segmental wall motion. Transmitral Doppler flow pattern is Grade I-abnormal relaxation pattern. Trace to mild tricuspid regurgitation. The PA pressure was estimated at 29 mmHg. There is no evidence of significant pericardial effusion. Injection of bubbles documented no interatrial shunt. Signed by : Justen Gardner, Electronically Approved : 08/07/2020 13:11:08
--- NOTE | 2020-08-07 13:40 | RAD ---
EXAM: Brain MRI without contrast. HISTORY: Aphasia. TECHNIQUE: Multiplanar, multisequence magnetic resonance imaging of the brain was performed without contrast. COMPARISON: Head CT dated 08/06/2020. FINDINGS: There is no restricted diffusion to suggest acute or subacute infarction. There is no susceptibility effect to suggest hemorrhage. There is no mass effect or midline shift. There is no hydrocephalus. There are extensive scattered areas of T2/FLAIR hyperintensity involving the cerebral white matter and rebekah. This is most commonly due to chronic small vessel disease in patients of this age. There is age-appropriate cerebral volume loss. There is a dilated perivascular space or chronic lacunar infarct within the junction of the right thalamus and cerebral peduncle. There is no suspicious osseous lesion. The orbits are unremarkable. There is a tiny left maxillary sinus mucous retention cyst. There is sphenoid sinus mucosal thickening or small air-fluid levels. There are incidental arachnoid granulations within the posterior fossa. There are normal flow voids within the cerebral vessels. IMPRESSION: 1. No acute intracranial finding. 2. Extensive areas of signal change within the cerebral white matter and rebekah, most commonly due to chronic small vessel disease in patients of this age. Electronically signed by: Ana Mcneil MD (08/07/2020 1:37 PM) [id number]
[2020-08-07 15:00] VITALS: BP 126/90
[2020-08-07] MEDS ORDERED: ASPI325T11 PO (16:36)
[2020-08-07] MEDS ORDERED: ATOR40TA59 PO (16:36)
--- NOTE | 2020-08-07 16:41 | PDOC3 ---
Discharge Summary Visit Information Date of Admission: Aug 07, 2020 Date of Discharge: Aug 07, 2020 Final Diagnosis Problems Medical Problems: (1) Expressive aphasia Status: Acute Brief Hospital Course Allergies Allergies Coded Allergies Type Severity Reaction Last Updated Verified No Known Drug Allergies 08/06/20 No Vital Signs Vital Signs Date Time Temp Pulse Resp B/P (MAP) Pulse Ox O2 Delivery O2 Flow Rate FiO2 08/07/20 15:00 97.9 85 17 126/90 (102) 95 Room Air 97.9 Lab Results Laboratory Tests Test 08/06/20 16:30 08/06/20 17:20 08/07/20 00:24 08/07/20 04:40 Glucose (Fingerstick) 121 mg/dL (70-99) White Blood Count 6.1 x10^3/uL (4.0-11.0) Red Blood Count 4.50 x10^6/uL (3.50-5.40) Hemoglobin 13.9 g/dL (12.0-15.5) Hematocrit 41.8 % (36.0-47.0) Mean Corpuscular Volume 93 fL (79-100) Mean Corpuscular Hemoglobin 31 pg (25-35) Mean Corpuscular Hemoglobin Concent 33 g/dL (31-37) Red Cell Distribution Width 13.4 % (11.5-14.5) Platelet Count 233 x10^3/uL (140-400) Neutrophils (%) (Auto) 63 % (31-73) Lymphocytes (%) (Auto) 24 % (24-48) Monocytes (%) (Auto) 10 % (0-9) Eosinophils (%) (Auto) 3 % (0-3) Basophils (%) (Auto) 1 % (0-3) Neutrophils # (Auto) 3.8 x10^3/uL (1.8-7.7) Lymphocytes # (Auto) 1.5 x10^3/uL (1.0-4.8) Monocytes # (Auto) 0.6 x10^3/uL (0.0-1.1) Eosinophils # (Auto) 0.2 x10^3/uL (0.0-0.7) Basophils # (Auto) 0.1 x10^3/uL (0.0-0.2) Sodium Level 137 mmol/L (136-145) 138 mmol/L (136-145) Potassium Level 4.2 mmol/L (3.5-5.1) 4.0 mmol/L (3.5-5.1) Chloride Level 103 mmol/L (98-107) 105 mmol/L (98-107) Carbon Dioxide Level 29 mmol/L (21-32) 26 mmol/L (21-32) Anion Gap 5 (6-14) 7 (6-14) Blood Urea Nitrogen 19 mg/dL (7-20) 19 mg/dL (7-20) Creatinine 0.9 mg/dL (0.6-1.0) 0.7 mg/dL (0.6-1.0) Estimated GFR (Cockcroft-Gault) 61.5 82.3 BUN/Creatinine Ratio 21 (6-20) Glucose Level 97 mg/dL (70-99) 105 mg/dL (70-99) Calcium Level 9.1 mg/dL (8.5-10.1) 8.6 mg/dL (8.5-10.1) Total Bilirubin 0.3 mg/dL (0.2-1.0) Aspartate Amino Transf (AST/SGOT) 17 U/L (15-37) Alanine Aminotransferase (ALT/SGPT) 22 U/L (14-59) Alkaline Phosphatase 84 U/L (46-116) Troponin I Quantitative < 0.017 ng/mL (0.000-0.055) < 0.017 ng/mL (0.000-0.055) < 0.017 ng/mL (0.000-0.055) C-Reactive Protein, Quantitative 1.3 mg/L (0-3.3) Total Protein 7.3 g/dL (6.4-8.2) Albumin 3.7 g/dL (3.4-5.0) Albumin/Globulin Ratio 1.0 (1.0-1.7) Vitamin B12 Level 271 pg/mL (247-911) Thyroid Stimulating Hormone (TSH) 0.011 uIU/mL (0.358-3.74) Test 08/07/20 05:00 Triglycerides Level 147 mg/dL (0-150) Cholesterol Level 161 mg/dL (0-200) LDL Cholesterol, Calculated 87 mg/dL (0-100) VLDL Cholesterol, Calculated 29 mg/dL (0-40) Non-HDL Cholesterol Calculated 116 mg/dL (0-129) HDL Cholesterol 45 mg/dL (40-60) Cholesterol/HDL Ratio 3.6 Laboratory Tests Test 08/06/20 17:20 08/07/20 00:24 08/07/20 04:40 08/07/20 05:00 White Blood Count 6.1 x10^3/uL (4.0-11.0) Red Blood Count 4.50 x10^6/uL (3.50-5.40) Hemoglobin 13.9 g/dL (12.0-15.5) Hematocrit 41.8 % (36.0-47.0) Mean Corpuscular Volume 93 fL (79-100) Mean Corpuscular Hemoglobin 31 pg (25-35) Mean Corpuscular Hemoglobin Concent 33 g/dL (31-37) Red Cell Distribution Width 13.4 % (11.5-14.5) Platelet Count 233 x10^3/uL (140-400) Neutrophils (%) (Auto) 63 % (31-73) Lymphocytes (%) (Auto) 24 % (24-48) Monocytes (%) (Auto) 10 % (0-9) Eosinophils (%) (Auto) 3 % (0-3) Basophils (%) (Auto) 1 % (0-3) Neutrophils # (Auto) 3.8 x10^3/uL (1.8-7.7) Lymphocytes # (Auto) 1.5 x10^3/uL (1.0-4.8) Monocytes # (Auto) 0.6 x10^3/uL (0.0-1.1) Eosinophils # (Auto) 0.2 x10^3/uL (0.0-0.7) Basophils # (Auto) 0.1 x10^3/uL (0.0-0.2) Sodium Level 137 mmol/L (136-145) 138 mmol/L (136-145) Potassium Level 4.2 mmol/L (3.5-5.1) 4.0 mmol/L (3.5-5.1) Chloride Level 103 mmol/L (98-107) 105 mmol/L (98-107) Carbon Dioxide Level 29 mmol/L (21-32) 26 mmol/L (21-32) Anion Gap 5 (6-14) 7 (6-14) Blood Urea Nitrogen 19 mg/dL (7-20) 19 mg/dL (7-20) Creatinine 0.9 mg/dL (0.6-1.0) 0.7 mg/dL (0.6-1.0) Estimated GFR (Cockcroft-Gault) 61.5 82.3 BUN/Creatinine Ratio 21 (6-20) Glucose Level 97 mg/dL (70-99) 105 mg/dL (70-99) Calcium Level 9.1 mg/dL (8.5-10.1) 8.6 mg/dL (8.5-10.1) Total Bilirubin 0.3 mg/dL (0.2-1.0) Aspartate Amino Transf (AST/SGOT) 17 U/L (15-37) Alanine Aminotransferase (ALT/SGPT) 22 U/L (14-59) Alkaline Phosphatase 84 U/L (46-116) Troponin I Quantitative < 0.017 ng/mL (0.000-0.055) < 0.017 ng/mL (0.000-0.055) < 0.017 ng/mL (0.000-0.055) C-Reactive Protein, Quantitative 1.3 mg/L (0-3.3) Total Protein 7.3 g/dL (6.4-8.2) Albumin 3.7 g/dL (3.4-5.0) Albumin/Globulin Ratio 1.0 (1.0-1.7) Vitamin B12 Level 271 pg/mL (247-911) Thyroid Stimulating Hormone (TSH) 0.011 uIU/mL (0.358-3.74) Triglycerides Level 147 mg/dL (0-150) Cholesterol Level 161 mg/dL (0-200) LDL Cholesterol, Calculated 87 mg/dL (0-100) VLDL Cholesterol, Calculated 29 mg/dL (0-40) Non-HDL Cholesterol Calculated 116 mg/dL (0-129) HDL Cholesterol 45 mg/dL (40-60) Cholesterol/HDL Ratio 3.6 Brief Hospital Course Ms. Paul is a 70 old female who presented with TIA.Consultations placed to Neurology. She had MRI that showed no acute intracranial finding, but extensive areas of signal change within the cerebral white matter and rebekah, most commonly due to chronic small vessel disease. She was discharged on aspirin and statin therapy, with close PCP follow-up. Discharge Information Condition at Discharge: Improved Follow Up: Weeks Disposition/Orders: D/C to Home Scheduled Aspirin (Aspirin Ec) 325 Mg Tablet.dr, 325 MG PO DAILYWBKFT for TIA, #30 Ref 2 Prescribed by: MARILEE RICH MD on 08/07/20 1636 Atorvastatin Calcium (Atorvastatin Calcium) 40 Mg Tablet, 80 MG PO QHS for TIA, #30 Ref 2 Prescribed by: MARILEE RICH MD on 08/07/20 1636 Carbidopa/Levodopa (Carbidopa-Levodopa 10-100 Tab) 1 Each Tablet, 1 EACH PO HS for restless legs, (Reported) Entered as Reported by: FELICIANO URIOSTEGUI on 08/07/204 Last Action: HELD on 08/07/20746 by MARILEE RICH MD Esomeprazole Magnesium (Nexium Capsule) 20 Mg Capsule.dr, 1 CAP PO DAILY for gerd, #30 Ref 2 (Reported) Entered as Reported by: FELICIANO URIOSTEGUI on 08/07/204 Last Action: New Order on 08/07/204 by FELICIANO URIOSTEGUI Lisinopril (Lisinopril) 20 Mg Tablet, 1 TAB PO DAILY for HTN, #30 Ref 5 (Reported) Entered as Reported by: FELICIANO URIOSTEGUI on 08/07/204 Last Action: Continued on 08/07/20746 by MARILEE RICH MD Discontinued Medications Meloxicam (Meloxicam) 15 Mg Tablet, 1 TAB PO DAILY for RA for 30 Days, #30 Ref 0 (Reported) Entered as Reported by: FELICIANO URIOSTEGUI on 08/07/204 Last Action: HELD on 08/07/20746 by MARILEE RICH MD Justicifation of Admission Dx: Justifications for Admission: Justification of Admission Dx: Yes MARILEE RICH MD Aug 07, 2020 16:41
--- NOTE | 2020-08-07 16:43 | NUR ---
SW following. Spoke with RN and reviewed chart. Pt resides in [place] with her spouse. Pt visits [place]. Pt to discharge today after MRI. Pt to discharge self-care on room air and oral medications. No SW needs at discharge.
--- NOTE | 2020-08-07 18:18 | NUR ---
patient discharged home with family. asa and lipitor script called to [facility] in [place]. meds and follow up reviewed. pt and spouse v/u. IV removed, cath intact. pt stable upon dc
[2020-08-08 01:08] LABS: HEMOGLOBIN A1C 5.7 % (4.8-5.6)
== END 2020-08-07 17:00 | disposition home or self-care (01) | DRG 69 ==
LOC: ER 16:08 → ED HOLD 20:30 → 5 NORTH 23:43
PROVIDERS: ADMIT Internal Medicine; ATTEND Internal Medicine
DX: G45.9 Transient cerebral ischemic attack, unspecified (principal); R47.01 Aphasia; I73.9 Peripheral vascular disease, unspecified; E03.9 Hypothyroidism, unspecified; G25.81 Restless legs syndrome; I10 Essential (primary) hypertension; M06.9 Rheumatoid arthritis, unspecified; Z82.49 Family history of ischemic heart disease and other diseases of the circulatory system; F32.9 Major depressive disorder, single episode, unspecified; K21.9 Gastro-esophageal reflux disease without esophagitis; Z79.899 Other long term (current) drug therapy; Z90.49 Acquired absence of other specified parts of digestive tract
CPT/HCPCS: 36415; 70450; 70551; 71045; 80048; 80053; 80061; 82607; 82962; 83036; 84443; 84484; 85025; 86140; 93005; 93306; 93880; 96374; 99285; J1644; J3490; 97110-GP; G0378